=== PATIENT | female | born 1990 | race African-American/Black ===

== ENCOUNTER 2017-01-29 09:39 | Emergency (ER) | payer MEDICAID ==
[~2017-01-29] VITALS: Ht 162.6 cm; Wt 102.1 kg
[2017-01-29 10:34] VITALS: BP 131/72
== END 2017-01-29 10:51 | disposition home or self-care (01) ==
LOC: ER 09:39
DX: S93.401A Sprain of unspecified ligament of right ankle, initial encounter (principal); W01.0XXA Fall on same level from slipping, tripping and stumbling without subsequent striking against object, initial encounter; Y93.89 Activity, other specified; Y92.89 Other specified places as the place of occurrence of the external cause; Y99.8 Other external cause status
CPT/HCPCS: 73600

== ENCOUNTER 2017-05-28 11:59 | Emergency (ER) | payer MEDICAID ==
[~2017-05-28] VITALS: Ht 162.6 cm; Wt 111.1 kg
[2017-05-28 13:13] VITALS: BP 122/84
[2017-05-28] MEDS ORDERED: KETOROLAC TROMETH 60MG/2ML VIAL IM ONE (13:30)
[2017-05-28] MEDS ORDERED: HYDROcodone-ACET 10/325MG TAB PO ONE (13:30)
== END 2017-05-28 13:56 | disposition home or self-care (01) ==
LOC: ER 11:59
DX: S62.614A Displaced fracture of proximal phalanx of right ring finger, initial encounter for closed fracture (principal); Y04.0XXA Assault by unarmed brawl or fight, initial encounter; Y93.89 Activity, other specified; Y92.89 Other specified places as the place of occurrence of the external cause; Y99.8 Other external cause status
CPT/HCPCS: 29130; 73130; 96372; 99284; J1885

== ENCOUNTER 2017-07-27 14:26 | Emergency (ER) | payer MEDICAID ==
[~2017-07-27] VITALS: Ht 165.1 cm; Wt 108.0 kg
[2017-07-27 14:35] VITALS: BP 133/94
[2017-07-27] MEDS ORDERED: LIDOCAINE 1% (LOCAL ANESTH.) PF 5ml SDV IJ ONE (15:15)
== END 2017-07-27 15:53 | disposition home or self-care (01) ==
LOC: ER 14:26
DX: S51.812A Laceration without foreign body of left forearm, initial encounter (principal); J45.909 Unspecified asthma, uncomplicated; E66.9 Obesity, unspecified; Z68.39 Body mass index [BMI] 39.0-39.9, adult; W01.198A Fall on same level from slipping, tripping and stumbling with subsequent striking against other object, initial encounter; Y93.01 Activity, walking, marching and hiking; Y99.8 Other external cause status; Y92.9 Unspecified place or not applicable
CPT/HCPCS: 12002

== ENCOUNTER 2017-09-27 18:12 | Emergency (ER) | payer MEDICAID ==
[~2017-09-27] VITALS: Ht 165.1 cm; Wt 108.0 kg
[2017-09-27 18:35] VITALS: BP 119/75
== END 2017-09-27 21:20 | disposition home or self-care (01) ==
LOC: ER 18:12
DX: N64.4 Mastodynia (principal); J45.909 Unspecified asthma, uncomplicated; Z88.6 Allergy status to analgesic agent
CPT/HCPCS: 76642

== ENCOUNTER → 2017-10-01 | Emergency (ER) | payer MEDICAID | END | disposition left against medical advice (07) | LOC: CANPREER → ER 02:48 | DX: R52 Pain, unspecified (principal); Z53.21 Procedure and treatment not carried out due to patient leaving prior to being seen by health care provider ==

== ENCOUNTER 2018-03-24 00:37 | Emergency (ER) | payer MEDICAID ==
[~2018-03-24] VITALS: Ht 172.7 cm; Wt 99.8 kg
[2018-03-24 00:42] VITALS: BP 159/87
== END 2018-03-24 02:25 | disposition left against medical advice (07) ==
LOC: ER 00:37 → EDBD 00:37 → EDUNIT# 00:37 → ER 02:25
DX: S00.81XA Abrasion of other part of head, initial encounter (principal); Z53.21 Procedure and treatment not carried out due to patient leaving prior to being seen by health care provider; W18.39XA Other fall on same level, initial encounter; Y93.89 Activity, other specified; Y99.8 Other external cause status; Y92.89 Other specified places as the place of occurrence of the external cause
CPT/HCPCS: 70450; 70486; 72125; 73130

== ENCOUNTER 2018-05-04 07:42 | Emergency (ER) | payer MEDICAID ==
[~2018-05-04] VITALS: Ht 162.6 cm; Wt 108.9 kg
[2018-05-04 08:08] VITALS: BP 138/83
[2018-05-04] MEDS ORDERED: traMADol HCL 50 MG TAB PO ONE (08:45)
== END 2018-05-04 08:58 | disposition home or self-care (01) ==
LOC: ER 07:42
DX: S92.512A Displaced fracture of proximal phalanx of left lesser toe(s), initial encounter for closed fracture (principal); F41.9 Anxiety disorder, unspecified; J45.909 Unspecified asthma, uncomplicated; Z88.6 Allergy status to analgesic agent; W20.8XXA Other cause of strike by thrown, projected or falling object, initial encounter; Y93.89 Activity, other specified; Y99.8 Other external cause status; Y92.89 Other specified places as the place of occurrence of the external cause
CPT/HCPCS: 73630; 99283; L3260

== ENCOUNTER 2019-11-09 03:20 | Emergency (ER) | payer MEDICAID ==
[~2019-11-09] VITALS: Ht 162.6 cm; Wt 106.6 kg
[2019-11-09] MEDS ORDERED: BACITRACIN TOP OINT 1 UD PKG TOP ONE (07:45)
[2019-11-09] MEDS ORDERED: LIDOCAINE 1% HCL (LOCAL ANESTH.) INJ 20ML MDV IJ ONE (07:45)
[2019-11-09] MEDS ORDERED: ACETAMINOPHEN 500 MG TAB PO ONE (08:00)
[2019-11-09 08:55] VITALS: BP 133/93
== END 2019-11-09 09:05 | disposition home or self-care (01) ==
LOC: ER 03:23
DX: S01.81XA Laceration without foreign body of other part of head, initial encounter (principal); W01.10XA Fall on same level from slipping, tripping and stumbling with subsequent striking against unspecified object, initial encounter; Y93.89 Activity, other specified; Y92.89 Other specified places as the place of occurrence of the external cause; Y99.8 Other external cause status
CPT/HCPCS: 12011; 70450; 99284; J2001